=== PATIENT | female | born 1990 | race Caucasian/White ===

== ENCOUNTER → 2016-07-07 | Outpatient (CLI) | payer OTHER ==
[~2016-07-07] MED LIST: GEMF600T PO; LEVO175T2 PO; NOVOLOGSS SQ
--- NOTE | 2016-07-07 16:31 | RADRPT ---
EXAM DATE/TIME: 07/07/2016 16:18 [facility] COMPARISON: No previous studies available for comparison. INDICATIONS : Evaluate for pneumonia, pneumothorax, or communicable disease. Pre op gastric bypass. MEDICAL HISTORY : None. SURGICAL HISTORY : None. ENCOUNTER: Initial ACUITY: 1 day PAIN SCORE: 0/10 LOCATION: Bilateral chest FINDINGS: PA and lateral views of the chest demonstrate the lungs to be symmetrically aerated without evidence of mass, infiltrate or effusion. The cardiomediastinal contours are unremarkable. Osseous structure s are intact. CONCLUSION: Normal examination. Chris Garcia MD on July 07, 2016 at 16:29 Board Certified Radiologist. This report was verified electronically.
--- NOTE | 2016-07-08 14:01 | EKG ---
Date Performed: 07/07/2016 Time Performed: 16:57:22 PTAGE: 26 years EKG: Sinus rhythm NORMAL ECG PREVIOUS TRACING : 07/03/2009 19.48 DOCTOR: Alex Marquez Interpretating Date/Time 07/08/2016 13:55:11
== END ==
LOC: HCAV 15:30
PROVIDERS: ATTEND Surgery
DX: E11.9 Type 2 diabetes mellitus without complications (principal); R12 Heartburn; E78.5 Hyperlipidemia, unspecified; E03.9 Hypothyroidism, unspecified; E66.01 Morbid (severe) obesity due to excess calories; Z68.41 Body mass index [BMI] 40.0-44.9, adult
CPT/HCPCS: 71020; 93005

== ENCOUNTER → 2016-07-07 | Outpatient (CLI) | payer OTHER | LOC: HRAD 15:37 | PROVIDERS: ATTEND Surgery | DX: Z00.00 Encounter for general adult medical examination without abnormal findings (principal) ==

== ENCOUNTER → 2016-08-16 | Outpatient (CLI) | payer OTHER ==
[~2016-08-16] VITALS: Ht 165.1 cm; Wt 124.3 kg
[~2016-08-16] MED LIST changes: +CHLORHEXIDINE GLUCONATE 2 % 1 PACK (2 CLOTHS) TOPICAL PRN; +DO NOT ADM ANY ANTICOAGULANT DRUGS PRN; +INSULIN HUMAN REGULAR 1,000 UNITS/10 ML VIAL SQ PRN; +LACTATED RINGER'S 1000 ML IV PRN; +METOPROLOL TARTRATE 25 MG TAB PO PRN; +ONDANSETRON HCL 4 MG/2 ML VIAL IV PUSH ONE; +POVIDONE IODINE 5% (ANTISEPSIS KIT) 4 APPLICATIONS EACH NARE PRN; +PROPOFOL 200 MG/20 ML AMP IV ONE; +SODIUM CHLORID 0.9% 500 ML IV PRN
[2016-08-16 10:58] VITALS: BP 127/73; PULSE 90; RESP 20; TEMP 98; O2SAT 95
--- NOTE | 2016-08-16 12:40 | GIPROC ---
[facility] [address] [facility], [id number] EGD PROCEDURE REPORT EXAM DATE: 08/16/2016 PATIENT NAME: Booker Mccracken MR #: [id number] BIRTHDATE: 1990 ATTENDING: Anuel Bradford MD ORDER #: [id number] ON SITE NURSE: Tello Duron and Audie Vasquez Dr. Sebastian STATUS: outpatient INDICATIONS: The patient is a 26 yr old female here for an EGD due to history of GERD PROCEDURE PERFORMED: EGD w/ biopsy MEDICATIONS: Per Anesthesia and None. TOPICAL ANESTHETIC: none CONSENT: The patient understands the risks and benefits of the procedure and understands that these risks include, but are not limited to: sedation, allergic reaction, infection, perforation and/or bleeding. Alternative means of evaluation and treatment include, among others: physical exam, x-rays, and/or surgical intervention. The patient elects to proceed with this endoscopic procedure. medical equipment was checked for proper function. Hand hygiene and appropriate measures for infection prevention was taken. After the risks, benefits and alternatives of the procedure were thoroughly explained, Informed consent was verified, confirmed and timeout was successfully executed by the treatment team. The patient was anesthetized with topical anesthesia and the Pentax EG-[id number] endoscope was introduced through the mouth and advanced to the second portion of the duodenum. Retroflexed views revealed no abnormalities The gastroscope was then slowly withdrawn and removed. The endoscopy was otherwise normal. ADVERSE EVENTS: There were no complications. IMPRESSIONS: 1. Normal endoscopy otherwise 2. Retroflexed views revealed no abnormalities RECOMMENDATIONS: Await biopsy results. Biopsy results will not be ready for 7-10 days. If you don't hear from us in two weeks, call our office for biopsy results. PATIENT CONDITION: fair DISPOSITION: Home REPEAT EXAM: NONE Anuel Bradford MD eSigned: Anuel Bradford MD 08/16/2016 12:40 PM cc: Ken Stevenson M.D.
[2016-08-16 13:54] VITALS: BP 110/68; PULSE 82; RESP 16; O2SAT 97
== END ==
LOC: HEND 09:57
PROVIDERS: ATTEND Surgery
DX: K29.60 Other gastritis without bleeding (principal); K21.9 Gastro-esophageal reflux disease without esophagitis
CPT/HCPCS: 00740; 43239; 88305; 88312; J2405

== ENCOUNTER 2016-09-28 08:52 | Inpatient (IN) | payer OTHER ==
[~2016-09-28] VITALS: Ht 165.1 cm; Wt 125.5 kg
[~2016-09-28 08:52] MED LIST changes: -CHLORHEXIDINE GLUCONATE 2 % 1 PACK (2 CLOTHS) TOPICAL PRN; -DO NOT ADM ANY ANTICOAGULANT DRUGS PRN; -GEMF600T PO; -INSULIN HUMAN REGULAR 1,000 UNITS/10 ML VIAL SQ PRN; -LACTATED RINGER'S 1000 ML IV PRN; -METOPROLOL TARTRATE 25 MG TAB PO PRN; -ONDANSETRON HCL 4 MG/2 ML VIAL IV PUSH ONE; -POVIDONE IODINE 5% (ANTISEPSIS KIT) 4 APPLICATIONS EACH NARE PRN; -PROPOFOL 200 MG/20 ML AMP IV ONE; -SODIUM CHLORID 0.9% 500 ML IV PRN
[2016-10-13] MEDS ORDERED: LACTATED RINGER'S 1000 ML IV PRN (05:45)
[2016-10-13] MEDS ORDERED: POVIDONE IODINE 5% (ANTISEPSIS KIT) 4 APPLICATIONS EACH NARE PRN (05:45)
[2016-10-13] MEDS ORDERED: METOPROLOL TARTRATE 25 MG TAB PO PRN (05:45)
[2016-10-13] MEDS ORDERED: INSULIN HUMAN REGULAR 1,000 UNITS/10 ML VIAL SQ PRN (05:45)
[2016-10-13] MEDS ORDERED: SODIUM CHLORID 0.9% 500 ML IV PRN (05:45)
[2016-10-13] MEDS ORDERED: CHLORHEXIDINE GLUCONATE 2 % 1 PACK (2 CLOTHS) TOPICAL PRN (05:45)
[2016-10-13 05:50] VITALS: BP 117/65; PULSE 87; RESP 18; TEMP 98.5; O2SAT 96
[2016-10-13] MEDS ORDERED: ceFAZolin 2 GM PREMIX 50 ML IV SCH (06:00)
[2016-10-13] MEDS ORDERED: ACETAMINOPHEN 1000 MG/100 ML VIAL IV SCH (06:00)
[2016-10-13] MEDS ORDERED: APREPITANT 40 MG CAP PO SCH (06:00)
[2016-10-13] MEDS ORDERED: ONDANSETRON HCL 4 MG/2 ML VIAL IV PUSH SCH (06:00)
[2016-10-13] MEDS ORDERED: SCOPOLAMINE 1.5 MG PATCH T-DERMAL SCH (06:00)
[2016-10-13] MEDS ORDERED: FAMOTIDINE 20 MG/2 ML VIAL ONE (06:32)
[2016-10-13] MEDS ORDERED: BUPIVACAINE/EPINEPHRINE 0.25% PF 10 ML VIAL ONE (06:44)
[2016-10-13] MEDS ORDERED: metroNIDAZOLE 500 MG INJ 100 ML IV ONE (07:14)
[2016-10-13] MEDS ORDERED: HYDROmorphone HCL PF 2 MG/ML VIAL ONE (07:56)
[2016-10-13] MEDS ORDERED: METHYLENE BLUE 100 MG/10 ML VIAL IV ONE (07:58)
[2016-10-13] MEDS ORDERED: SUGAMMADEX SODIUM 200 MG/2 ML VIAL IV PUSH ONE ×2 (08:58)
[2016-10-13] MEDS ORDERED: ACETAMINOPHEN 325MG/HYDROcodone 7.5MG/15ML UDC PO PRN ×2 (10:45)
[2016-10-13] MEDS ORDERED: Post-op Orders (for Pharmacy) MISC OTHER ONE (10:45)
[2016-10-13] MEDS ORDERED: ENALAPRILAT 1.25 MG/ML VIAL IV PUSH PRN (10:45)
[2016-10-13] MEDS ORDERED: NALOXONE HCL 0.4 MG/ML AMP IV PRN (10:45)
[2016-10-13] MEDS ORDERED: GLUCAGON 1 MG/ML VIAL OTHER PRN (10:45)
[2016-10-13] MEDS: SODIUM CHLORIDE 0.9% FLUSH 10 ML FLUSH IV FLUSH SCH ×2 (10:45→20:32)
[2016-10-13] MEDS ORDERED: diphenhydrAMINE HCL ELIXIR 12.5 MG/5 ML CUP PO PRN (10:45)
[2016-10-13] MEDS ORDERED: diphenhydrAMINE HCL 50 MG/ML VIAL IV PRN (10:45)
[2016-10-13] MEDS ORDERED: DEXTROSE 50% IN WATER 50 ML VIAL(D50) IV PUSH PRN (10:45)
--- NOTE | 2016-10-13 11:00 | HHI.PR ---
Immediate Post Op Note Procedure Date: Oct 13, 2016 Pre Op Diagnosis: morbid obesity, DM, BMI 45.7 Post Op Diagnosis: same Surgeon: Anuel Bradford MD Management Advisor(s): Dr. Suárez Procedure: laparoscopic gastric bypass Findings: no leak with methylene blue Complications: none Specimen(s) removed: none Estimated blood loss: 10cc Anesthesia: General Drains: None Patient to: PACU Patient Condition: Good Anuel Bradford MD Oct 13, 2016 11:00
[2016-10-13] MEDS ORDERED: fentaNYL CITRATE 250 MCG/5 ML AMP ONE (11:05)
[2016-10-13] MEDS ORDERED: MIDAZOLAM HCL 2 MG/2 ML VIAL ONE (11:06)
[2016-10-13] MEDS ORDERED: DO NOT ADM ANY ANTICOAGULANT DRUGS PRN (11:45)
[2016-10-13] MEDS: 1/2 NS + KCL 20 MEQ INJ 1,000 ML IV SCH ×2 (11:58→21:37)
[2016-10-13] MEDS ORDERED: NEOSTIGMINE 3 MG/3 ML SYR IV ONE (12:00)
[2016-10-13] MEDS ORDERED: PROPOFOL 200 MG/20 ML AMP IV ONE (12:00)
[2016-10-13] MEDS ORDERED: LACTATED RINGER'S 1000 ML INJ 1,000 ML IV ONE (12:00)
[2016-10-13] MEDS ORDERED: ONDANSETRON HCL 4 MG/2 ML VIAL IV PUSH ONE (12:00)
[2016-10-13] MEDS ORDERED: VECURONIUM BROMIDE 10 MG VIAL IV ONE (12:00)
[2016-10-13] MEDS: RESP: ALBUTEROL 2.5 MG/3 ML NEB (SCH) INH ×4 (12:00→23:48)
[2016-10-13] MEDS: METOCLOPRAMIDE HCL 10 MG/2 ML VIAL IV PUSH SCH ×3 (12:03→20:33)
[2016-10-13] MEDS: MORPHINE SULFATE 30 MG/30 ML PCA IV SCH (13:40)
[2016-10-13] MEDS: PCA - TOTAL MG MORPHINE DELIVERED PER SHIFT SCH ×2 (14:00→22:00)
[2016-10-13] MEDS: ONDANSETRON HCL 4 MG/2 ML VIAL IV PRN (14:03)
[2016-10-13] MEDS: ENOXAPARIN SODIUM 40 MG/0.4 ML SYRINGE SQ SCH (14:07)
[2016-10-13] MEDS: metroNIDAZOLE 500 MG INJ 100 ML IV SCH ×2 (15:10→23:51)
[2016-10-13 16:00] VITALS: BP 113/76; PULSE 88; RESP 20; TEMP 96.9; O2SAT 95
[2016-10-13] MEDS: INSULIN NovoLIN REGULAR SUPPLEMENTAL SCALE SQ SCH ×2 (16:46→20:31)
[2016-10-13 16:53] VITALS: O2SAT 98
[2016-10-13 20:21] VITALS: BP 120/67; PULSE 90; RESP 17; TEMP 97.3; O2SAT 95
[2016-10-14] VITALS (8 sets, daily range): BP systolic 105–136; BP diastolic 65–85; PULSE 73–88; RESP 17–20; TEMP 96.4–98.8; O2SAT 90–98
[2016-10-14] MEDS: RESP: ALBUTEROL 2.5 MG/3 ML NEB (SCH) INH ×5 (03:00→19:35)
[2016-10-14 05:26] LABS: AUTOMATED NEUTROPHIL # 6.3 TH/MM3 (1.8-7.7); BASOPHIL % 0.3 % (0.0-2.0); EOSINOPHIL % 0.1 % (0.0-4.0); HEMATOCRIT 38.1 % (35.0-46.0); HEMO FLAGS DIFF FINAL; LYMPH % 19.9 % (9.0-44.0); LYMPHOCYTE # 1.7 TH/MM3 (1.0-4.8); MEAN CELL VOLUME 82.8 FL (80.0-100.0); MEAN CORPUSCULAR HEMOGLOBIN 27.8 PG (27.0-34.0); MEAN CORPUSCULAR HGB CONC 33.6 % (32.0-36.0); NEUT % 72.7 % (16.0-70.0); PLATELET COUNT 257 TH/MM3 (150-450); WHITE BLOOD COUNT 8.7 TH/MM3 (4.0-11.0)
[2016-10-14 05:44] LABS: BICARBONATE 28.6 MEQ/L (21.0-32.0); MAGNESIUM 2.1 MG/DL (1.5-2.5); POTASSIUM 4.6 MEQ/L (3.5-5.1)
[2016-10-14] MEDS: PCA - TOTAL MG MORPHINE DELIVERED PER SHIFT SCH ×3 (06:00→22:00)
[2016-10-14 06:04] LABS: CALCIUM-PROTEIN CORRECTED 7.2 MG/DL (8.5-10.1)
[2016-10-14] MEDS: INSULIN NovoLIN REGULAR SUPPLEMENTAL SCALE SQ SCH (07:00)
[2016-10-14] MEDS: 1/2 NS + KCL 20 MEQ INJ 1,000 ML IV SCH ×3 (07:39→16:50)
[2016-10-14] MEDS: METOCLOPRAMIDE HCL 10 MG/2 ML VIAL IV PUSH SCH (07:42)
[2016-10-14] MEDS: metroNIDAZOLE 500 MG INJ 100 ML IV SCH (08:30)
[2016-10-14] MEDS: PANTOPRAZOLE SOD 40 MG DELAYED RELEASE TAB PO SCH (08:31)
[2016-10-14] MEDS: SODIUM CHLORIDE 0.9% FLUSH 10 ML FLUSH IV FLUSH SCH ×2 (08:31→20:47)
[2016-10-14] MEDS ORDERED: CALCIUM GLUCONATE INJ 1 GM in SODIUM CHLORIDE 0.9% INJ 100 ML IV ONE (08:45)
[2016-10-14] MEDS ORDERED: METOCLOPRAMIDE HCL 10 MG/2 ML VIAL IV PUSH PRN (10:45)
--- NOTE | 2016-10-14 10:47 | HHI.PR ---
Subjective Subjective Notes no acute issues, tolerating sips mild nausea, c/o pain but controlled with meds bs 300s Objective Vitals/I&O Vital Signs Date Time Temp Pulse Resp B/P Pulse Ox O2 Delivery O2 Flow Rate FiO2 10/14/16 08:18 93 10/14/16 08:00 96.7 73 18 127/83 10/13/16 16:53 Nasal Cannula 2.00 Labs Laboratory Tests Test 10/14/16 04:49 White Blood Count 8.7 Red Blood Count 4.60 Hemoglobin 12.8 Hematocrit 38.1 Mean Corpuscular Volume 82.8 Mean Corpuscular Hemoglobin 27.8 Mean Corpuscular Hemoglobin 33.6 Concent Red Cell Distribution Width 14.0 Platelet Count 257 Mean Platelet Volume 7.4 Neutrophils (%) (Auto) 72.7 Lymphocytes (%) (Auto) 19.9 Monocytes (%) (Auto) 7.0 Eosinophils (%) (Auto) 0.1 Basophils (%) (Auto) 0.3 Neutrophils # (Auto) 6.3 Lymphocytes # (Auto) 1.7 Monocytes # (Auto) 0.6 Eosinophils # (Auto) 0.0 Basophils # (Auto) 0.0 CBC Comment DIFF FINAL Differential Comment Sodium Level 138 Potassium Level 4.6 Chloride Level 103 Carbon Dioxide Level 28.6 Anion Gap 6 Blood Urea Nitrogen 10 Creatinine 0.78 Estimat Glomerular Filtration 90 Rate Random Glucose 302 Calcium Level 7.0 Protein Corrected Calcium 7.2 Magnesium Level 2.1 Total Protein 6.7 Cardiovascular: Regular Lungs: Clear Abdomen: Other (soft mild ttp incisional, incisions c/d/i) A/P Assessment and Plan POD 1 Lap RYGB doing well PLAN Adjust insulin pump to correct sugars continue bariatric diet pain control likely d/c today or tomorrow Anuel Bradford MD Oct 14, 2016 10:46
[2016-10-14] MEDS: ONDANSETRON HCL 4 MG/2 ML VIAL IV PRN ×2 (12:16→20:47)
[2016-10-14] MEDS ORDERED: DEXTROSE 50% IN WATER 50 ML VIAL(D50) IV PUSH PRN (12:30)
[2016-10-14] MEDS ORDERED: GLUCAGON 1 MG/ML VIAL OTHER PRN (12:30)
[2016-10-14] MEDS: MEDIUM DOSE INSULIN NOVOLIN REGULAR SUPPLEMENTAL SCALE SQ SCH ×3 (13:02→20:47)
[2016-10-14] MEDS: ENOXAPARIN SODIUM 40 MG/0.4 ML SYRINGE SQ SCH (15:11)
[2016-10-14 15:38] LABS: CALCIUM-PROTEIN CORRECTED 8.7 MG/DL (8.5-10.1)
[2016-10-14] MEDS: MORPHINE SULFATE 30 MG/30 ML PCA IV SCH (21:13)
--- NOTE | 2016-10-14 22:36 | MP ---
cc: ESTEVAN BRADFORD MD DATE OF SURGERY: 10/14/2016 PREOPERATIVE DIAGNOSIS Morbid obesity, BMI 45.7, diabetes. POSTOPERATIVE Diagnosis Morbid obesity, BMI 45.7, diabetes. PROCEDURE PERFORMED Laparoscopic Melyssa-en-Y gastric bypass 40 cm Melyssa-limb 100 cm biliopancreatic limb, lysis of adhesions. SURGEON Dr. Estevan Bradford. WAREHOUSE LEAD Dr. Ken Stevenson, needed due to the complexity of the laparoscopic case, Dr. Stevenson assisted with camera control and retraction. ANESTHESIA GETA. IV FLUIDS 1700 cc. ESTIMATED BLOOD LOSS 10 cc. DRAINS None. COMPLICATIONS None. WOUND CLASSIFICATION Clean, contaminated. FINDINGS No leak on induction of methylene blue. Good hemostasis. Small infraumbilical hernia. Adhesions. SPECIMENS None. INDICATION A 26-year-old female with a history of morbid obesity and multiple attempts at weight loss without success. The patient with a BMI of 45.7 and insulin-dependent diabetes. The patient does have other medical issues and decided for bariatric surgery including laparoscopic gastric bypass, discussed with the patient in detail. DETAILS OF THE PROCEDURE The patient was taken to the operating suite, placed in supine position. She was prepped and draped in the usual sterile fashion after induction of general endotracheal anesthesia. A brief timeout done stating correct patient, procedure, surgical site; we were all in agreement with this. Attention directed to the midline 18 cm from the xyphoid. Local anesthetic was injected,0.25% Marcaine with epinephrine. A 5-mm incision was made just off to the left of midline. A 5-mm OptiVu port under direct visualization was introduced and pneumoperitoneum was done to 16 mm. On vision of the quadrants, there was noted to be several adhesions. Especially infraumbilical adhesions with omentum with an infraumbilical hernia. Several other trocars placed. A right upper quadrant 5-mm liver retractor trocar was placed. A 12-mm right lower quadrant port was placed. A 12-mm left lower quadrant port was placed. A 5-mm left lateral lower quadrant port was also placed. Prior to all port placements, local anesthetic was injected. All ports introduced in direct visualization. Attention then directed to the adhesions to the intraabdominal wall and hernia. Omentum was ligated with electro Bovie and Harmonic scalpel. After this was taken down, several other minimal adhesions were also taken down as well. Then the patient remained supine and flat and attention directed to the omentum starting on the transverse colon from approximately the hepatic flexure up to near the transverse colon, the omentum was split to create a path for the lumen. Next, the ligament of Treitz was identified, the bowel was walked 40 cm distal to this. The small bowel was divided with using the [place] Flex Endo-ANIAT stapler with seam guard. Next, a clip was placed to jennifer the proximal limb. The distal limb was further walked another distance 100 cm distally. Enterotomies were created in this antimesenteric border of the biliopancreatic limb and the previous transected proximal portion of the limb. This was done in order to fashion our jejunojejunostomy. A Linear Endo-ANITA stapler was used to create a rqfdjcu-obs-xsbwher layer. This was done in a [id number]-[id number]-[id number] stapling manner. Next, the common enterotomy was grasped and another Endo-ANITA stapler used to approximate the open conjoined enterotomy. Small clips were placed at the staple line. Next, using 2-0 silk the small redundant bowel was singly sutured using a lacquer tie. Once we were finished with this, the patient was placed in reverse Trendelenburg and the left side up. Shannon Flex retractor was placed. The left lobe of the liver was retracted. Angle of His was taken down using harmonic scalpel. The 5-mm camera port at the midline umbilicus was actually repositioned pointed distally next to the umbilicus in order for a better camera view. Approximately 5 cm from the GE junction on the lesser curve, the lesser sac was entered using harmonic scalpel and blunt dissection. Linear Endo-ANITA stapler was used to transect horizontally using a blue load stapler. We did confirm that no NG tubes were in place or probes were in place. Further the pouch was created by heading cephalad firing two more Endo-ANITA blue loads up to and near the angle of His. This divided the stomach completely. Next, the gastrotomy was created using hook cautery. Enterotomy was also placed in the Melyssa-limb jejunal side as well. The Endo-ANITA stapler was used to staple and approximate the jejunal limb to the gastric pouch approximately 2 cm. Next, 2-0 Polysorb was used in a running fashion to approximate the enterotomy. Lehr through the suture was cut and the 18-Icelandic OG tube was advanced to pass the anastomosis. The defect was closed from a second running 2-0 Polysorb Endo suture, these two were tied together creating a single layer. This single was then tested with methylene blue without evidence of leaking. Next, a second layer was run using lacquer tie and Endo suture to reapproximate and reinforce the gastrojejunostomy. Next, Evicel was placed over the gastrojejunostomy and jejunojejunostomy on all staple lines. Next, the defect was closed preventing internal hernias. This was done with a permanent 2-0 Surgidac. Next, the two 12-mm port sites were closed with a 0-Vicryl using a suture passer. Following this pneumoperitoneum was removed, all ports and trocars were removed as well. The OG was also removed. The subcuticular sutures were done to all port sites using a 4-0 Monocryl. Sterile dressings then placed. The patient tolerated the procedure well. There were no operative complications. The patient was extubated, taken stable to PACU. All counts were correct at the end of procedure. MD RAMON Sifuentes/LOUISA /9:08 PM /9:40 PM
[2016-10-15 00:11] VITALS: BP 115/63; PULSE 96; RESP 18; TEMP 99.4; O2SAT 94
[2016-10-15] MEDS: 1/2 NS + KCL 20 MEQ INJ 1,000 ML IV SCH ×2 (00:37→10:45)
[2016-10-15] MEDS: RESP: ALBUTEROL 2.5 MG/3 ML NEB (SCH) INH ×3 (04:00→07:55)
[2016-10-15 04:27] VITALS: BP 114/67; PULSE 101; RESP 17; TEMP 98.8; O2SAT 94
[2016-10-15] MEDS: MEDIUM DOSE INSULIN NOVOLIN REGULAR SUPPLEMENTAL SCALE SQ SCH ×2 (04:38→11:00)
[2016-10-15] MEDS: PCA - TOTAL MG MORPHINE DELIVERED PER SHIFT SCH (04:38)
[2016-10-15] MEDS: SODIUM CHLORIDE 0.9% FLUSH 10 ML FLUSH IV FLUSH SCH (07:50)
[2016-10-15] MEDS: PANTOPRAZOLE SOD 40 MG DELAYED RELEASE TAB PO SCH (07:50)
[2016-10-15 07:57] VITALS: O2SAT 93
[2016-10-15 08:00] VITALS: BP 111/61; PULSE 95; RESP 16; TEMP 98.1; O2SAT 91
--- NOTE | 2016-10-15 08:22 | HHI.PR ---
Subjective Subjective Notes doing a bit better today, mild nausea, no flatus Objective Vitals/I&O Vital Signs Date Time Temp Pulse Resp B/P Pulse Ox O2 Delivery O2 Flow Rate FiO2 10/15/16 08:00 98.1 95 16 111/61 91 10/14/16 19:35 21 10/13/16 16:53 Nasal Cannula 2.00 Labs Laboratory Tests Test 10/14/16 14:40 Calcium Level 8.6 Protein Corrected Calcium 8.7 Total Protein 7.0 Cardiovascular: Regular Lungs: Clear Abdomen: Other (soft, incisions c/d/i) A/P Assessment and Plan POD 2 Lap RYGB doing better PLAN Adjust insulin pump to correct sugars, better control this am- BS-96 continue bariatric diet pain control d/c planning today Anuel Bradford MD Oct 15, 2016 08:22
[2016-10-15 12:00] VITALS: BP 108/65; PULSE 101; RESP 16; TEMP 98.6; O2SAT 90
== END 2016-10-15 14:52 | disposition home or self-care (01) | DRG 621 ==
LOC: HSDI 10-13 05:24 → N07B 10-13 13:32
PROVIDERS: ADMIT Surgery; ATTEND Surgery
PROC: 0D164ZA Bypass Stomach to Jejunum, Percutaneous Endoscopic Approach (ICD-10-PCS; principal; 2016-10-13 07:16)
DX: E66.01 Morbid (severe) obesity due to excess calories (principal); E03.9 Hypothyroidism, unspecified; E10.9 Type 1 diabetes mellitus without complications; E78.5 Hyperlipidemia, unspecified; K21.9 Gastro-esophageal reflux disease without esophagitis; Z68.42 Body mass index [BMI] 45.0-49.9, adult; Z79.4 Long term (current) use of insulin
CPT/HCPCS: 80048; 82948; 83735; 84155; 85025; 94150; 94640; 94664; J0131; J0610; J0690; J1170; J1650; J2250; J2270; J2405; J2710; J2765; J3010; J7120; J7613; J8501

== ENCOUNTER → 2016-09-29 | Outpatient (CLI) | payer OTHER ==
[~2016-09-29] MED LIST changes: +GEMF600T PO
[2016-09-29 09:43] LABS: AUTOMATED NEUTROPHIL # 3.3 TH/MM3 (1.8-7.7); BASOPHIL % 0.6 % (0.0-2.0); EOSINOPHIL # 0.2 TH/MM3 (0-0.4); EOSINOPHIL % 2.7 % (0.0-4.0); HEMATOCRIT 42.8 % (35.0-46.0); HEMO FLAGS DIFF FINAL; LYMPHOCYTE # 2.9 TH/MM3 (1.0-4.8); MEAN CELL VOLUME 82.9 FL (80.0-100.0); MEAN CORPUSCULAR HEMOGLOBIN 26.9 PG (27.0-34.0); MEAN CORPUSCULAR HGB CONC 32.5 % (32.0-36.0); MONO % 6.8 % (0.0-8.0); NEUT % 47.9 % (16.0-70.0); PLATELET COUNT 290 TH/MM3 (150-450); RED BLOOD COUNT 5.16 MIL/MM3 (4.00-5.30); RED CELL DISTRIBUTION WIDTH 13.9 % (11.6-17.2); WHITE BLOOD COUNT 6.9 TH/MM3 (4.0-11.0)
[2016-09-29 10:31] LABS: ANION GAP 7 MEQ/L (5-15); BLOOD UREA NITROGEN 14 MG/DL (7-18); CHLORIDE 104 MEQ/L (98-107); GLOMERULAR FILTRATION RATE 90 ML/MIN (>89); GLUCOSE,FASTING 102 MG/DL (74-99); POTASSIUM 3.5 MEQ/L (3.5-5.1); SODIUM (NA) 141 MEQ/L (136-145)
[2016-09-29 10:35] LABS: BETA HCG QUANT LESS THAN 1 MIU/ML (0-5)
== END ==
LOC: CLAB 09:17
PROVIDERS: ATTEND Surgery
DX: E11.9 Type 2 diabetes mellitus without complications (principal)
CPT/HCPCS: 36415; 80048; 84702; 85025; 85610

== ENCOUNTER → 2017-01-17 | Outpatient (CLI) | payer OTHER ==
[~2017-01-17] MED LIST changes: -GEMF600T PO
[2017-01-17 09:39] LABS: AUTOMATED NEUTROPHIL # 1.7 TH/MM3 (1.8-7.7); BASOPHIL % 0.9 % (0.0-2.0); EOSINOPHIL # 0.6 TH/MM3 (0-0.4); EOSINOPHIL % 11.9 % (0.0-4.0); HEMATOCRIT 38.1 % (35.0-46.0); HEMO FLAGS DIFF FINAL; LYMPH % 47.4 % (9.0-44.0); LYMPHOCYTE # 2.4 TH/MM3 (1.0-4.8); MEAN CELL VOLUME 86.5 FL (80.0-100.0); MEAN CORPUSCULAR HEMOGLOBIN 28.7 PG (27.0-34.0); MEAN CORPUSCULAR HGB CONC 33.2 % (32.0-36.0); MONO % 7.3 % (0.0-8.0); NEUT % 32.5 % (16.0-70.0); PLATELET COUNT 258 TH/MM3 (150-450); RED CELL DISTRIBUTION WIDTH 14.8 % (11.6-17.2); WHITE BLOOD COUNT 5.2 TH/MM3 (4.0-11.0)
[2017-01-17 10:22] LABS: MICRO ALBUMIN RANDOM URINE RAW 46.6 MG/L (0.0-30.0)
[2017-01-17 10:28] LABS: ANION GAP 4 MEQ/L (5-15); AST (GOT) 18 U/L (15-37); BICARBONATE 28.7 MEQ/L (21.0-32.0); BLOOD UREA NITROGEN 12 MG/DL (7-18); CHLORIDE 111 MEQ/L (98-107); GLOMERULAR FILTRATION RATE 120 ML/MIN (>89); GLUCOSE,FASTING 151 MG/DL (74-99); MAGNESIUM 1.9 MG/DL (1.5-2.5); POTASSIUM 3.5 MEQ/L (3.5-5.1); SODIUM (NA) 144 MEQ/L (136-145)
[2017-01-17 10:54] LABS: ALKALINE PHOSPHATASE 100 U/L (45-117); ALT (GPT) 23 U/L (10-53); FERRITIN 102 NG/ML (8-252); HDL CHOLESTEROL 51.1 MG/DL (40.0-60.0); LDL CHOLESTEROL 90 MG/DL (0-99); TOTAL BILIRUBIN ADULT 0.5 MG/DL (0.2-1.0); TRANSFERRIN IRON PROFILE 153 MG/DL (200-360)
[2017-01-17 13:45] LABS: HEMOGLOBIN A1a 1.3 %; HEMOGLOBIN A1b 0.7 %; HEMOGLOBIN Ao 81.5 %; HEMOGLOBIN F 1.2 %; HEMOGLOBIN LA1C 2.2 %; HEMOGLOBIN P3 4.1 %
== END ==
LOC: CLAB 09:00
PROVIDERS: ATTEND Surgery
DX: E11.9 Type 2 diabetes mellitus without complications (principal); E66.01 Morbid (severe) obesity due to excess calories
CPT/HCPCS: 36415; 80053; 80061; 82043; 82306; 82607; 82728; 82746; 83036; 83540; 83550; 83735; 83970; 84100; 84443; 84590; 85025

== ENCOUNTER 2017-06-16 20:50 | Emergency (ER) | payer OTHER ==
[~2017-06-16] VITALS: Ht 165.1 cm; Wt 72.0 kg
[2017-06-16 20:54] VITALS: BP 107/74; PULSE 91; RESP 16; TEMP 98.3; O2SAT 97
[2017-06-16] MEDS ORDERED: SODIUM CHLOR 0.9% 1000 ML INJ 1,000 ML IV SCH (22:56)
[2017-06-16] MEDS ORDERED: MORPHINE SULFATE 4 MG/ML INJ IV PUSH ONE (23:00)
[2017-06-16] MEDS ORDERED: ONDANSETRON HCL 4 MG/2 ML VIAL IVP ONE (23:00)
[2017-06-16] MEDS ORDERED: SODIUM CHLORIDE 0.9% FLUSH 10 ML FLUSH IV FLUSH PRN (23:00)
--- NOTE | 2017-06-16 23:17 | PD ---
HPI Chief Complaint: Bleeding Time Seen by Provider: 22:45 Travel History International Travel<30 days: No Contact w/Intl Traveler<30days: No Traveled to known affect area: No History of Present Illness HPI 27-year-old female arrives with a complaint of blood per rectum. It was first noticed earlier in the day. She reports blood mixed with stool and abdominal cramping. The cramping severity is moderate. She reports 5 months prior undergoing gastric bypass done by Dr. Bradford. No fever. Mild nausea. PFSH Past Medical History Autoimmune Disease: No Anxiety: No Depression: Yes Cancer: No Cardiovascular Problems: No Diabetes: Yes (insulin pump) Patient Takes Glucophage: Yes Diminished Hearing: No Endocrine: Yes (DIABETIC) Gastrointestinal Disorders: No (found hernia by belly button) Genitourinary: No Headaches: Yes (migraines) Hepatitis: Yes (ENLARGED LIVER) Hiatal Hernia: No Hypertension: No Immune Disorder: No Implanted Vascular Access Dvce: Yes Medical other: No Musculoskeletal: No Neurologic: No Psychiatric: No Reproductive: No Respiratory: No Immunizations Current: Yes Migraines: Yes Thyroid Disease: Yes (hypothyroidism) Tetanus Vaccination: < 5 Years Influenza Vaccination: Yes ?: Unknown Menopausal: No : 1 Para: 1 Past Surgical History Abdominal Surgery: No AICD: No Body Medical Devices: EXTERNAL INSULIN PUMP Cardiac Surgery: No Section: Yes Ear Surgery: No Endocrine Surgery: No Eye Surgery: No Genitourinary Surgery: No Gynecologic Surgery: Yes (c sections) Insulin Pump: Yes (currently off and being sent home with mother) Joint Replacement: No Neurologic Surgery: No Oral Surgery: Yes (WISDOM TEETH REMOVED WITH ORAL MEDICATION) Pacemaker: No Thoracic Surgery: No Other Surgery: Yes Social History Alcohol Use: Yes (social) Tobacco Use: Yes Substance Use: No Allergies-Medications (Allergen,Severity, Reaction): Coded Allergies: niacin (Unverified Adverse Reaction, Intermediate, 06/16/17) hives Uncoded Allergies: SURGICAL TAPE (Allergy, Severe, BLISTERS, 08/16/16) Reported Meds & Prescriptions Reported Meds & Active Scripts Active Preparation H Supp (Phenylephrine-[place] Butter Supp) 0.25-88.44 % Supp 1 Supp RECTAL QID PRN 14 Days Metamucil Original Texture (Psyllium Hydrophilic Mucilloid) 3.4 Gram/7 Gram Pow 1 Scoop PO TID PRN 30 Days 1 rounded TEASPOON in 8 oz of liquid at the first sign of irregularity. Reported Novolog Inj (Insulin Aspart) 100 Unit/Ml Inj 4.5 Units SQ CONTINUOUS VIA INSULIN PUMP Levothyroxine (Levothyroxine Sodium) 175 Mcg Tab 175 Mcg PO DAILY Review of Systems Except as stated in HPI: all other systems reviewed are Neg General / Constitutional: No: Fever, Chills Physical Exam Narrative GENERAL: 27-year-old female pleasant no acute distress Vital Signs Date Time Temp Pulse Resp B/P (MAP) Pulse Ox O2 Delivery O2 Flow Rate FiO2 06/16/17 20:54 98.3 91 16 107/74 (85) 97 SKIN: Warm and dry. HEAD: Atraumatic. Normocephalic. EYES: Pupils equal and round. No scleral icterus. No injection or drainage. ENT: No nasal bleeding or discharge. Mucous membranes pink and moist. NECK: Trachea midline. No JVD. CARDIOVASCULAR: Regular rate and rhythm. RESPIRATORY: No accessory muscle use. Clear to auscultation. Breath sounds equal bilaterally. GASTROINTESTINAL: Abdomen soft, non-tender, nondistended. Hepatic and splenic margins not palpable. MUSCULOSKELETAL: Extremities without clubbing, cyanosis, or edema. No obvious deformities. NEUROLOGICAL: Awake and alert. No obvious cranial nerve deficits. Motor grossly within normal limits. Five out of 5 muscle strength in the arms and legs. Normal speech. PSYCHIATRIC: Appropriate mood and affect; insight and judgment normal. Data Data Last Documented VS Vital Signs Date Time Temp Pulse Resp B/P (MAP) Pulse Ox O2 Delivery O2 Flow Rate FiO2 06/17/17 01:43 06/17/17 01:32 60 16 99 Room Air 06/16/17 20:54 98.3 Orders Orders Complete Blood Count With Diff (06/16/17 22:56) Comprehensive Metabolic Panel (06/16/17 22:56) Lipase (06/16/17 22:56) Urinalysis - C+S If Indicated (06/16/17 22:56) Ct Abd/Pel W Iv Contrast(Rout) (06/16/17 22:56) Iv Access Insert/Monitor (06/16/17 22:56) Ecg Monitoring (06/16/17 22:56) Oximetry (06/16/17 22:56) Ondansetron Inj (Zofran Inj) (06/16/17 23:00) Sodium Chlor 0.9% 1000 Ml Inj (Ns 1000 M (06/16/17 22:56) Sodium Chloride 0.9% Flush (Ns Flush) (06/16/17 23:00) Morphine Inj (Morphine Inj) (06/16/17 23:00) Urine Culture (06/16/17 23:13) Ed Urine Pregnancytest Poc (06/16/17 23:36) Iohexol 350 Inj (Omnipaque 350 Inj) (06/17/17 01:07) Ed Discharge Order (06/17/17 01:34) Labs Laboratory Tests Test 06/16/17 23:13 White Blood Count 8.9 TH/MM3 Red Blood Count 4.66 MIL/MM3 Hemoglobin 13.5 GM/DL Hematocrit 39.6 % Mean Corpuscular Volume 85.1 FL Mean Corpuscular Hemoglobin 29.0 PG Mean Corpuscular Hemoglobin Concent 34.0 % Red Cell Distribution Width 12.8 % Platelet Count 349 TH/MM3 Mean Platelet Volume 7.8 FL Neutrophils (%) (Auto) 38.3 % Lymphocytes (%) (Auto) 49.5 % Monocytes (%) (Auto) 7.2 % Eosinophils (%) (Auto) 4.0 % Basophils (%) (Auto) 1.0 % Neutrophils # (Auto) 3.4 TH/MM3 Lymphocytes # (Auto) 4.4 TH/MM3 Monocytes # (Auto) 0.6 TH/MM3 Eosinophils # (Auto) 0.4 TH/MM3 Basophils # (Auto) 0.1 TH/MM3 CBC Comment DIFF FINAL Differential Comment Urine Color YELLOW Urine Turbidity HAZY Urine pH 6.0 Urine Specific [place] 1.038 Urine Protein 30 mg/dL Urine Glucose (UA) 1000 mg/dL Urine Ketones NEG mg/dL Urine Occult Blood NEG Urine Nitrite NEG Urine Bilirubin NEG Urine Urobilinogen LESS THAN 2.0 MG/DL Urine Leukocyte Esterase SMALL Urine RBC 2 /hpf Urine WBC 10 /hpf Urine Squamous Epithelial Cells 1 /hpf Urine Calcium Oxalate Crystals MOD /hpf Urine Hyaline Casts 4 /lpf Urine Mucus MANY /lpf Microscopic Urinalysis Comment CULTURE INDICATED Blood Urea Nitrogen 11 MG/DL Creatinine 0.56 MG/DL Random Glucose 105 MG/DL Total Protein 7.3 GM/DL Albumin 3.4 GM/DL Calcium Level 8.6 MG/DL Alkaline Phosphatase 124 U/L Aspartate Amino Transf (AST/SGOT) 21 U/L Alanine Aminotransferase (ALT/SGPT) 62 U/L Total Bilirubin 0.3 MG/DL Sodium Level 146 MEQ/L Potassium Level 3.5 MEQ/L Chloride Level 110 MEQ/L Carbon Dioxide Level 32.5 MEQ/L Anion Gap 4 MEQ/L Estimat Glomerular Filtration Rate 131 ML/MIN Lipase 51 U/L MDM Medical Decision Making Medical Screen Exam Complete: Yes Emergency Medical Condition: Yes Medical Record Reviewed: Yes Differential Diagnosis Constipation, Gastritis, Acute Cholecystitis, Biliary Colic, Pancreatitis, WREN , Hepatitis, Bowel Obstruction, Cystitis, Mesenteric Ischemia, AAA, Appendicitis , Renal Stone/Hydronephrosis, GERD, perforated viscous Narrative Course CBC & BMP Diagram 06/16/17 23:13 Total Protein 7.3, Albumin 3.4, Calcium Level 8.6, Alkaline Phosphatase 124 H, Aspartate Amino Transf (AST/SGOT) 21, Alanine Aminotransferase (ALT/SGPT) 62 H, Total Bilirubin 0.3 UA: no UTI Lipase 51 Rectal exam reveals internal hemorrhoids. Treatment modalities discussed. Pt appreciative and agreeable with plan. Last Impressions Abdomen/Pelvis CT 06/16/17 [id number] Signed Impressions: Service Date/Time: Saturday, June 17, 2017 01:00 - CONCLUSION: 1. No acute abnormality demonstrated. 2. Liver is mildly fatty infiltrated. Chris Davidson MD The patient is resting comfortably and feels better, is alert and in no distress. The patients results and examination findings were discussed. The repeat examination is unremarkable and benign. The history, exam, diagnostic testing, and current condition do not suggest any significant pathology to warrant further testing, continued ED treatment, admission, or surgical evaluation at this point. The vital signs have been stable. The patient does not have uncontrollable pain, intractable vomiting, or other significant symptoms. The patient's condition is stable and appropriate for discharge. The patient will pursue further outpatient evaluation with a primary care physician or other designated or consulting physician as indicated in the discharge instructions. The patient expressed understanding and was agreeable with this plan. Diagnosis Primary Impression: Hemorrhoids Qualified Codes: K64.9 - Unspecified hemorrhoids Additional Impression: Rectal bleed Referrals: Anuel Bradford MD 2 days Med/Other Pt SpecificInfo: Prescription(s) given Scripts Phenylephrine-[place] Butter Supp (Preparation H Supp) 0.25-88.44 % Supp 1 SUPP RECTAL QID Y for INFLAMMATION for 14 Days, SUPP 0 Refills Prov: Neville Khan MD 06/17/17 Psyllium Powder (Metamucil Original Texture) 3.4 Gram/7 Gram Pow 1 SCOOP PO TID Y for CONSTIPATION for 30 Days, CONTAINER 0 Refills 1 rounded TEASPOON in 8 oz of liquid at the first sign of irregularity. Prov: Neville Khan MD 06/17/17 Disposition: 01 DISCHARGE HOME Condition: Stable Neville Khan MD Jun 16, 2017 23:16
[2017-06-16 23:26] LABS: AUTOMATED NEUTROPHIL # 3.4 TH/MM3 (1.8-7.7); BASOPHIL # 0.1 TH/MM3 (0-0.2); EOSINOPHIL # 0.4 TH/MM3 (0-0.4); HEMATOCRIT 39.6 % (35.0-46.0); HEMOGLOBIN 13.5 GM/DL (11.6-15.3); LYMPH % 49.5 % (9.0-44.0); LYMPHOCYTE # 4.4 TH/MM3 (1.0-4.8); MEAN CELL VOLUME 85.1 FL (80.0-100.0); MEAN PLATELET VOLUME 7.8 FL (7.0-11.0); MONO % 7.2 % (0.0-8.0); MONOCYTE # 0.6 TH/MM3 (0-0.9); NEUT % 38.3 % (16.0-70.0); PLATELET COUNT 349 TH/MM3 (150-450); RED BLOOD COUNT 4.66 MIL/MM3 (4.00-5.30); RED CELL DISTRIBUTION WIDTH 12.8 % (11.6-17.2); WHITE BLOOD COUNT 8.9 TH/MM3 (4.0-11.0)
[2017-06-16 23:28] LABS: BILIRUBIN, URINE NEG (NEG); BLOOD, URINE NEG (NEG); CALCIUM OXALATE CRYSTALS,URINE MOD /hpf; GLUCOSE,URINE 1000 mg/dL (NEG); HYALINE CAST, URINE 4 /lpf (RARE); KETONE, URINE NEG (NEG); MUCUS URINE MANY /lpf (OCC); NITRITE,URINE NEG (NEG); SQUAMOUS EPITHELIAL CELL URINE 1 /hpf (0-5); URINE COLOR YELLOW (YELLW/STRAW); URINE LEUKOCYTE ESTERASE SMALL (NEG)
[2017-06-16 23:31] VITALS: O2SAT 99
[2017-06-16 23:43] LABS: ALBUMIN 3.4 GM/DL (3.4-5.0); ALT (GPT) 62 U/L (10-53); AST (GOT) 21 U/L (15-37); BICARBONATE 32.5 MEQ/L (21.0-32.0); BLOOD UREA NITROGEN 11 MG/DL (7-18); CALCIUM 8.6 MG/DL (8.5-10.1); CHLORIDE 110 MEQ/L (98-107); CREATININE 0.56 MG/DL (0.50-1.00); GLOMERULAR FILTRATION RATE 131 ML/MIN (>89); GLUCOSE,RANDOM 105 MG/DL (74-106); SODIUM (NA) 146 MEQ/L (136-145)
[2017-06-16 23:46] LABS: ALKALINE PHOSPHATASE 124 U/L (45-117); TOTAL BILIRUBIN ADULT 0.3 MG/DL (0.2-1.0); TOTAL PROTEIN 7.3 GM/DL (6.4-8.2)
[2017-06-17] MEDS ORDERED: IOHEXOL 350 MG/ML 10 ML VIAL (for RAD DIAG) IVCONTRAST ONE (01:07)
--- NOTE | 2017-06-17 01:16 | RADRPT ---
EXAM DATE/TIME: 06/17/2017 01:00 [facility] COMPARISON: CT ABDOMEN & PELVIS W CONTRAST, March 06, 2009, 21:46. INDICATIONS : Left abdominal pain with bloody stool. IV CONTRAST: 100 cc Omnipaque 350 (iohexol) IV ORAL CONTRAST: No oral contrast ingested. RADIATION DOSE: 11.58 CTDIvol (mGy) MEDICAL HISTORY : Diabetes. SURGICAL HISTORY : section. ENCOUNTER: Initial ACUITY: 1 day PAIN SCALE: 7/10 LOCATION: Bilateral abdomen TECHNIQUE: Volumetric scanning of the abdomen and pelvis was performed. Using automated exposure control and ad justment of the mA and/or kV according to patient size, radiation dose was kept as low as reasonably achievable to obtain optimal diagnostic quality images. DICOM format image data is available electro nically for review and comparison. FINDINGS: LOWER LUNGS: The visualized lower lungs are clear. LIVER: Homogeneous mild fatty density without lesion. There is no dilation of the biliary tree. No calcifi ed gallstones. SPLEEN: Normal size without lesion. PANCREAS: Within normal limits. KIDNEYS: Normal in size and shape. There is no mass, stone or hydronephrosis. ADRENAL GLANDS: Within normal limits. VASCULAR: There is no aortic aneurysm. BOWEL/MESENTERY: The stomach, small bowel, and colon demonstrate no acute abnormality. There is no free intraperitone al air or fluid. No perceptible mass or inflammatory changes. The appendix is well-visualized and nor mal. Gastric bypass changes are noted without evidence of an acute complication. ABDOMINAL WALL: Within normal limits. RETROPERITONEUM: There is no lymphadenopathy. BLADDER: No wall thickening or mass. REPRODUCTIVE: Within normal limits. INGUINAL: There is no lymphadenopathy or hernia. MUSCULOSKELETAL: Within normal limits for patient age. CONCLUSION: 1. No acute abnormality demonstrated. 2. Liver is mildly fatty infiltrated. Chris Davidson MD on June 17, 2017 at 1:12 Board Certified Radiologist. This report was verified electronically.
[2017-06-17 01:32] VITALS: BP 91/57; PULSE 60; RESP 16; O2SAT 99
[2017-06-17] MEDS ORDERED: PHEN60SU RECTAL (01:33)
[2017-06-17] MEDS ORDERED: META48.53 PO (01:33)
== END 2017-06-17 02:20 | disposition home or self-care (01) ==
LOC: NEPE 20:50
DX: K64.9 Unspecified hemorrhoids (principal); E03.9 Hypothyroidism, unspecified; E11.9 Type 2 diabetes mellitus without complications; Z72.0 Tobacco use; Z79.4 Long term (current) use of insulin
CPT/HCPCS: 74177; 80053; 81001; 83690; 84703; 85025; 87086; 96374; 96375; 99284; J2270; J2405; J7030; Q9967